=== PATIENT | male | born 1995 | race Caucasian/White ===

== ENCOUNTER 2021-05-24 19:29 | Emergency (ER) | payer SELFPAY ==
--- NOTE | ~2021-05-24 | XR_ITS ---
EXAMINATION: XR chest 2V 05/24/2021 20:03 INDICATION: Midsternal chest pain and shortness of breath PROCEDURE: 2 view chest COMPARISON: No prior studies for comparison. FINDINGS: The lungs are clear. The cardiomediastinal silhouette is within normal limits. There are no pleural effusions. There is no pneumothorax suspected. IMPRESSION: 1: NO ACUTE CARDIOPULMONARY DISEASE. Reviewed, dictated and finalized at location A.
[2021-05-24 19:32] VITALS: BP 151/101; PULSE 97; RESP 16; TEMP 36.4; O2SAT 100
--- NOTE | 2021-05-24 19:34 | ECG_ITS ---
Measurements Intervals [place] Rate: 98 P: 48 GA: 146 QRS: -7 QRSD: 74 T: 18 QT: 324 QTc: 415 Interpretive Statements SINUS RHYTHM DELAYED PRECORDIAL R/S TRANSITION VOLTAGE CRITERIA FOR LVH MINIMAL Q WAVES- HIGH LATERAL LEADS BORDERLINE ECG Electronically Signed On 05-24-2021 20:28:25 CDT by Andrew Mancini D.O.
[2021-05-24 19:50] LABS: Basophils Absolute Auto 0.1 K/mm3 (0.0-0.1); Basophils Percent Auto 0.5 % (0.2-1.2); Eosinophils Absolute Auto 0.2 K/mm3 (0-0.3); Eosinophils Percent Auto 1.7 % (0-4.4); Hematocrit 46.6 % (42.0-52.0); Hemoglobin 15.1 g/dL (14.0-18.0); Immature Granulocyte Absolute 0.06 K/mm3 (0.00-0.031); Immature Granulocyte Percent A 0.5 % (0-0.5); Lymphocytes Absolute Auto 2.45 K/mm3 (0.9-3.2); Lymphocytes Percent Auto 19.5 % (18.3-44.2); Mean Corpuscular HGB Conc 32.4 g/dl (32-36); Mean Corpuscular Hemoglobin 29.9 pg (26-34); Mean Corpuscular Volume 92.3 fl (80-100); Mean Platelet Volume 10.6 fl (7.4-10.4); Monocytes Absolute Auto 0.8 K/mm3 (0.1-0.6); Monocytes Percent Auto 6.2 % (2.6-8.5); Neutrophils Percent Auto 71.6 % (45.5-73.1); Platelet Count Result 290 k/mm3 (150-375); Red Blood Count 5.05 M/mm3 (4.6-6.20); Red Cell Distribution Width 12.7 % (11.5-14.5); White Blood Count 12.6 K/mm3 (4.5-10.0)
[2021-05-24 19:58] LABS: INR 0.9; Partial Thromboplastin Time 24.8 SECONDS (22.3-36.8); Prothrombin Time 11.8 Seconds (11.1-14.7)
[2021-05-24 20:03] LABS: Anion Gap 9 mmol/L (8-16); Blood Urea Nitrogen 15 mg/dL (9-20); Calcium 9.8 mg/dL (8.4-10.2); Carbon Dioxide 29 mmol/L (22-30); Chloride 104 mmol/L (98-107); Estimated CRCL calculation 140 ml/min; Estimated Glomerular Filt Rate > 60; Glucose 93 mg/dL (65-110); Potassium 3.8 mmol/L (3.4-5.0); Sodium 142 mmol/L (137-145)
[2021-05-24 20:15] LABS: Troponin I < 0.012 ng/mL (0.000-0.034)
--- NOTE | 2021-05-24 20:55 | ED.CHESTPAIN ---
HPI - Chest Pain General Chief Complaint: Chest Pain Stated Complaint: Chest pain Time Seen by Provider: 05/24/21 19:47 History of Present Illness HPI narrative: Patient is a 25-year-old male who presents ER with chest discomfort. Ongoing over the last day. Intermittent. Burning. No radiation. Associate with some nausea and some poor taste in the back of his throat. No exertional chest pain or shortness of breath. Denies fevers or chills or sweats. Unsure of its affected by eating. Worsens with lying down flat. Reports he thinks smoking cigarettes is caused this discomfort. He recently started smoking due to anxiety/stress. Related Data Allergies Allergy/AdvReac Type Severity Reaction Status Date / Time morphine AdvReac Hives Verified 05/24/21 19:37 Review of Systems Review of Systems: All systems reviewed & are unremarkable except as noted in HPI and below Constitutional: Constitutional: Denies chills and Denies fever(s) ENT: Denies nasal congestion and Denies sore throat Cardiovascular: Cardiovascular: Reports chest pain, Denies rapid heart rate and Denies radiating jaw, neck or arm pain Respiratory: Respiratory: Denies cough, Denies dyspnea and Denies wheezing Gastrointestinal: Gastrointestinal: Denies abdominal pain, Reports heartburn, Denies diarrhea, Reports nausea and Denies vomiting PMFSH Past Medical History Medical History (Updated 05/24/21 @ 22:04 by Jericho Conroy MD) Healthy adult male Surgical History Surgical History (Updated 05/24/21 @ 20:59 by Jericho Conroy MD) No pertinent past surgical history Social History Social History (Updated 05/24/21 @ 20:59 by Jericho Conroy MD) Smoking status: Current every day smoker Exam Narrative: GENERAL: Well-appearing, well-nourished, and in no acute distress. HEAD: Normocephalic, atraumatic. EYES: PERRL and EOMI. ENT: Mucous membranes moist. CHEST: Clear to auscultation. No respiratory distress. HEART: Regular rate and rhythm. No murmur heard. Normal peripheral pulses. ABDOMEN: Soft, nontender, nondistended. EXTREMITIES: Normal range of motion. No edema. NEURO: Alert and oriented x3. PSYCH: Normal mood and affect. Course Vital Signs Vital signs: Vital Signs Temperature 97.6 F 05/24/21 19:32 Pulse Rate 97 10/31/21 19:32 Respiratory Rate 16 05/24/21 19:32 Blood Pressure 151/101 H 05/24/21 19:32 Pulse Oximetry 100 05/24/21 19:32 Temperature 97.6 F 05/24/21 19:32 Pulse Rate 97 05/24/21 21:27 Respiratory Rate 18 05/24/21 21:27 Blood Pressure 122/83 05/24/21 21:27 Pulse Oximetry 97 05/24/21 21:27 MDM - Chest Pain Lab Data Result diagrams: 05/24/21 19:42 05/24/21 19:42 Labs: Lab Results 05/24/21 05/24/21 05/24/21 Range/Units 19:42 19:42 19:42 WBC 12.6 H (4.5-10.0) K/mm3 RBC 5.05 (4.6-6.20) M/mm3 Hgb 15.1 (14.0-18.0) g/dL Hct 46.6 (42.0-52.0) % MCV 92.3 (80-100) fl MCH 29.9 (26-34) pg MCHC 32.4 (32-36) g/dl RDW 12.7 (11.5-14.5) % Plt Count 290 (150-375) k/mm3 MPV 10.6 H (7.4-10.4) fl Immature Gran % (Auto) 0.5 (0-0.5) % Neut % (Auto) 71.6 (45.5-73.1) % Lymph % (Auto) 19.5 (18.3-44.2) % Noble % (Auto) 6.2 (2.6-8.5) % Eos % (Auto) 1.7 (0-4.4) % Baso % (Auto) 0.5 (0.2-1.2) % Lymph # (Auto) 2.45 (0.9-3.2) K/mm3 Noble # (Auto) 0.8 H (0.1-0.6) K/mm3 Eos # (Auto) 0.2 (0-0.3) K/mm3 Baso # (Auto) 0.1 (0.0-0.1) K/mm3 Abs Immat Gran (auto) 0.06 H (0.00-0.031) K/mm3 Absolute Neuts (auto) 9.0 H (1.3-6.7) K/mm3 Absolute Nucleated RBC 0.0 (0.0-0.012) K/mm3 Nucleated RBC % 0.0 (0.0-0.2) % PT 11.8 (11.1-14.7) Seconds INR 0.9 APTT 24.8 (22.3-36.8) SECONDS Sodium 142 (137-145) mmol/L Potassium 3.8 (3.4-5.0) mmol/L Chloride 104 (98-107) mmol/L Carbon Dioxide 29 (22-30) mmol/L Anion Gap 9 (8-16) mmol/L B
[2021-05-24] MEDS: BELLADONNA ALK/PHENOB ELIX 10 ML, MAG HYDROX/ALUMINUM HYD/SIMETH 30 ML, LIDOCAINE HCL 2... PO (21:09)
[2021-05-24 21:27] VITALS: BP 122/83; PULSE 103; PULSE 97; RESP 18; O2SAT 97
[2021-05-24 22:40] VITALS: BP 133/80; PULSE 78; RESP 18; O2SAT 99
== END 2021-05-24 22:41 | disposition home or self-care (01) ==
PROVIDERS: Emergency Provider Emergency Medicine
DX: R07.89 Other chest pain (principal); F17.200 Nicotine dependence, unspecified, uncomplicated; R94.31 Abnormal electrocardiogram [ECG] [EKG]
CPT/HCPCS: 36415; 71046; 80048; 84484; 85025; 85610; 85730; 93005; 99284; A9270